=== PATIENT | female | born 1980 | race Caucasian/White ===

== ENCOUNTER 2022-12-28 13:11 | Emergency (ER) | payer BC, OTHER ==
[~2022-12-28] VITALS: Ht 152.4 cm; Wt 56.0 kg
[2022-12-28] MEDS ORDERED: CEFDINIR300 MG PO (13:49)
[2022-12-28] MEDS ORDERED: PROVENTIL HFA6.7 GM INH (13:49)
[2022-12-28] MEDS ORDERED: NASACORT16.9 ML (13:49)
[2022-12-28] MEDS ORDERED: OMEPRAZOLE40 MG PO (13:50)
[2022-12-28] MEDS ORDERED: ONDANSETRON ODT4 MG PO (13:50)
[2022-12-28 13:59] VITALS: O2SAT 97
== END 2022-12-28 13:59 | disposition home or self-care (01) ==
LOC: FSED 13:16
DX: H66.92 Otitis media, unspecified, left ear (principal); J32.9 Chronic sinusitis, unspecified
CPT/HCPCS: 99283